=== PATIENT | male | born 1970 | race Hispanic/Latino ===

== ENCOUNTER 2023-06-14 07:34 | Emergency (ER) | payer SELFPAY ==
[2023-06-14] MEDS ORDERED: Acetaminophen 500 MG TAB ONE (08:42)
[2023-06-14] MEDS ORDERED: Methocarbamol 500 MG TAB ONE (08:42)
[2023-06-14] MEDS ORDERED: Ketorolac Tromethamine 30 MG (1 mL) VIAL ONE (08:43)
== END 2023-06-14 10:15 | disposition home or self-care (01) ==
LOC: ERS 07:34 → EDBD 07:34 → ERS 10:15
DX: M54.50 Low back pain, unspecified (principal); I10 Essential (primary) hypertension
CPT/HCPCS: 72170; 96372; J1885

== ENCOUNTER 2023-12-08 09:20 | Emergency (ER) | payer SELFPAY ==
[2023-12-08] MEDS ORDERED: Fluorescein Opthalmic Strip ONE (09:39)
[2023-12-08] MEDS ORDERED: Proparacaine 0.5% Opth 15 ML BOT ONE (09:39)
== END 2023-12-08 10:56 | disposition home or self-care (01) ==
LOC: ERS 09:20
DX: H57.11 Ocular pain, right eye (principal); I10 Essential (primary) hypertension; X58.XXXA Exposure to other specified factors, initial encounter; Y93.H3 Activity, building and construction; Y92.61 Building [any] under construction as the place of occurrence of the external cause
CPT/HCPCS: 99283